=== PATIENT | female | born 1970 | race Caucasian/White ===

== ENCOUNTER → 2020-10-09 13:40 | Outpatient (CLI) | payer SELFPAY ==
[2017-05-03 10:05] VITALS: BMI 38.2
[2020-10-09 16:04] LABS: T4 Total, Thyroxin 8.9 ug/dL (4.8-13.9); Thyroid Stim Hormone (TSH) 2.04 uIU/mL (0.358-3.74)
[2020-10-09 16:23] LABS: Hemoglobin A1c 5.4 % (3.8-5.6)
[2020-10-11 08:33] LABS: Thyroid Peroxidase AB < 9 IU/mL (0-34)
== END ==
PROVIDERS: PCP Nurse Practitioner Adult Health; Referring Provider Nurse Practitioner Adult Health; Visit Provider Nurse Practitioner Adult Health
DX: R63.5 Abnormal weight gain (principal); R53.83 Other fatigue
CPT/HCPCS: 36415; 83036; 84436; 84443; 86376

== ENCOUNTER 2020-10-16 08:47 | Emergency (ER) | payer SELFPAY ==
[2020-10-16 08:47] VITALS: BP 139/82; PULSE 72; RESP 18; TEMP 36.3; O2SAT 100; BMI 42.9
--- NOTE | 2020-10-16 09:16 | RAD_ITS ---
STUDY: X-RAY - LEFT FOOT CLINICAL: Female, 49 years old. Injury/Pain TECHNIQUE: 3 view(s) of the foot. COMPARISON: None. FINDINGS: There is a plantar calcaneal spur. Normal visualized subtalar, talonavicular, calcaneocuboid, tarsal and tarsometatarsal articulations. There is a 4.1 mm avulsion type fracture along the dorsal aspect of the first cuneiform bone. Normal metatarsi. The patient is status post prior bunionectomy. Normal tibial and fibular sesamoid bones. Normal interphalangeal joint of the great toe. Normal phalanges of the great toe. Normal second through fifth metatarsophalangeal joints. Normal interphalangeal joints and phalanges of the lesser toes. Soft tissue swelling. RAD/Foot min 3 Views IMPRESSION: Findings suggestive of an avulsion type fracture along the dorsal aspect of the first cuneiform bone. Soft tissue swelling. Plantar spur. Electronically Signed: Alex Suresh MD at 10:07 EDT , Service support ,
--- NOTE | 2020-10-16 09:17 | ED.VIS.LOWEX ---
HPI History of Present Illness Chief Complaint: Lower Extremity Injury Informant: patient Narrative Narrative: Patient is a 49-year-old female presenting with continued left foot and second/third toe pain. She had an x-ray at [facility] right after the injury which not show an acute fracture. She continued to have pain and has paresthesia of her second toe. She is worried that there might be a missed fracture so she came in for further evaluation. She takes ibuprofen with limited relief of the pain. She denies any medical history. She states she had an A1c performed at [facility] last week. She does not know the results. These results are looked up and her A1c was 5.4, normal. Tetanus Immunization: Unknown PFSH PFS Home Medications estradiol [Estrace] 0 mg PO DAILY 05/03/17 [History Last Taken Unknown] naproxen 500 mg PO BID PRN #20 tab 05/03/17 [Rx Last Taken Unknown] Allergy/AdvReac Type Severity Reaction Status Date / Time No Known Allergies Allergy Verified 10/16/20 08:47 Social History Smoking Status: Former smoker ROS ROS ED Constitutional Constitutional ED: Reports frequent falls; Denies fever(s) Eyes Eyes: Denies change in vision or eye pain ENT ENT ED: Denies dental pain, mouth lesions or nasal trauma Cardiovascular Cardiovascular: Denies chest pain or syncope Respiratory/Chest Respiratory/Chest: Denies cough or dyspnea Gastrointestinal Gastrointestinal: Denies abdominal pain or nausea Genitourinary Genitourinary ED: Denies urinary frequency Musculoskeletal Musculoskeletal: Reports other Details: left foot pain ; Denies arthralgias, back pain or myalgias Integumentary Denies Abrasions, rash or wounds Neurologic Neurologic: Reports paresthesias LLE (left 2nd and 3rd toes ); Denies headache(s) or weakness Psychiatric Psychiatric: Denies anxiety or depression Hematologic/Lymphatic Hematologic/Lymphatic: Denies easy bleeding or easy bruising EXAM Physical Exam Const Vital Signs: 10/16/20 08:47 Temperature 97.3 F L Temperature Source Temporal Pulse Rate 72 Respiratory Rate 18 Blood Pressure 139/82 H Blood Pressure Mean 101 Pulse Ox 100 Oxygen Delivery Method Room Air Positive well nourished and well developed General Appearance ED: well developed HEENT normocephalic and atraumatic Eyes PERRL Neck full ROM Chest Wall inspection of chest normal Resp normal respiratory effort Cardio regular rate and regular rhythm Cardio Narrative: 2+ dp pulses Extremity normal to inspection and full ROM Extremity Narrative: Significant tenderness to palpation of the dorsal aspect of the midfoot with even light palpation as well as tenderness palpation of the second and third left toes. Range of motion is intact. No obvious deformity. No overlying erythema or cellulitic changes. General Extremety ED: Negative for edema General Extremity: Negative for edema Psych mental status grossly normal Skin Lesions: no lesions Rashes: no rashes MDM MDM MDM Narrative Medical decision making narrative: Patient valuated with 1 month of left foot pain. She had injury 1 month ago. She is concerned she has a fracture since it still hurting. She continues to walk on it. She has significant pain of the dorsal aspect of her left midfoot as well as her second and third toes. No new injuries. X-ray shows a 4 mm avulsion fracture of the cuneiform bone. This is consistent with her pain. I am not exactly sure why she is so much pain in her second and third toes however. Case is discussed with podiatry on-call, Dr. Sal, who recommends postop shoe and outpatient follow-up. Patient is given referral for podiatry. She [facility]. Patient had a normal A1c last week and I do not think she has an undiagnosed diabetic neuropathy. Radiography Diagnostic Testing: Radiology Impression Foot X-Ray 10/16/20 09:16 IMPRESSION: Findings suggestive of an avulsion type fracture along the dorsal aspect of the first cuneiform bone. Soft tissue swelling. Plantar spur. Electronically Signed: Alex Suresh MD at 10:07 EDT , Service support , Treatment and Re-Evaluation Comments:: Postop shoe, follow-up with podiatry Discharge Plan Triage Chief Complaint: Lower Extremity Injury ED Provider: Sheryl Bedoya Dx/Rx/DC Orders Clinical Impression: Closed fracture of cuneiform bone of left foot Instructions: ED Fracture, Foot Prescriptions: No Action estradiol [Estrace] 1 MG tablet 0 mg PO DAILY RF: 0 naproxen 500 MG tablet 500 mg PO BID PRN Qty: 20 RF: 0 Primary Care Provider: [facility]en Manning Referrals: Sunni Sal DPM [STAFF PHYSICIAN] - [facility]en [facility] [Primary Care Provider] - Disposition Disposition: Home, self care
[2020-10-16 11:47] VITALS: RESP 16
== END 2020-10-16 11:48 | disposition home or self-care (01) ==
PROVIDERS: Emergency Provider Emergency Medicine
DX: S92.812A Other fracture of left foot, initial encounter for closed fracture (principal); X58.XXXA Exposure to other specified factors, initial encounter; Z87.891 Personal history of nicotine dependence
CPT/HCPCS: 73630; 99283

== ENCOUNTER 2021-07-13 12:05 | Emergency (ER) | payer MEDICAID, SELFPAY ==
[2021-07-13 12:06] VITALS: BP 122/74; PULSE 71; RESP 18; TEMP 35.9; O2SAT 100; BMI 44.6
--- NOTE | 2021-07-13 12:39 | RAD_ITS ---
STUDY: X-RAY - RIGHT ANKLE REASON FOR EXAM: Female, 50 years old. Pain and swelling TECHNIQUE: 3 view(s) of the ankle. COMPARISON: None. FINDINGS: Normal visualized distal tibia and fibula. Normal medial and lateral malleoli. Normal tibiotalar articulation and ankle mortise. Normal visualized talus. Calcaneal spurs The visualized subtalar, talonavicular, calcaneocuboid and tarsal articulations are normal. The soft tissue structures are unremarkable. RAD/Ankle min 3 Views IMPRESSION: Calcaneal spurs, no demonstrated fracture or suspicious osseous lesion Electronically Signed: Felix Salinas MD at 13:19 EST ,
--- NOTE | 2021-07-13 12:39 | RAD_ITS ---
STUDY: X-RAY - RIGHT FOOT CLINICAL: Female, 50 years old. Pain and swelling TECHNIQUE: 3 view(s) of the foot. COMPARISON: None. FINDINGS: Normal talus and tarsal bones. Calcaneal spurs Normal visualized subtalar, talonavicular, calcaneocuboid, tarsal and tarsometatarsal articulations. Normal metatarsi. There is degenerative arthrosis of the metatarsophalangeal joint of the hallux . Normal tibial and fibular sesamoid bones. Normal interphalangeal joint of the great toe. Normal phalanges of the great toe. Normal second through fifth metatarsophalangeal joints. Normal interphalangeal joints and phalanges of the lesser toes. The soft tissue structures are unremarkable. RAD/Foot min 3 Views IMPRESSION: Calcaneal spurs, no demonstrated fracture First MTP joint arthrosis Electronically Signed: Felix Salinas MD at 13:20 EST ,
--- NOTE | 2021-07-13 12:41 | EX.ED.DYSGE1 ---
HPI History of Present Illness Chief Complaint: Lower Extremity Injury Informant: patient Narrative Narrative: 50-year-old female presents with right foot and ankle pain. Few days ago her dog tripped her and she injured the right ankle and the toes of the right foot. She notes swelling ecchymosis and continued pain. PFSH PFSH Medical History no medical history Home Medications estradiol [Estrace] 0 mg PO DAILY 05/03/17 [History Last Taken Unknown] naproxen 500 mg PO BID PRN #20 tab 05/03/17 [Rx Last Taken Unknown] Allergy/AdvReac Type Severity Reaction Status Date / Time No Known Allergies Allergy Verified 07/13/21 12:08 Social History (Updated 07/13/21 @ 12:[address] Erik Salgado, DO) Smoking Status: Former smoker substance use type: does not use ROS ROS ED Constitutional Constitutional ED: Denies chills, fever(s) or weight loss Eyes Eyes: Denies change in vision or diplopia ENT ENT ED: Denies ear pain, rhinorrhea or sore throat Cardiovascular Cardiovascular: Denies chest pain, orthopnea, palpitations or racing heartbeat Respiratory/Chest Respiratory/Chest: Denies cough, dyspnea or orthopnea Gastrointestinal Gastrointestinal: Denies abdominal pain, diarrhea, nausea or vomiting Genitourinary Genitourinary ED: Denies dysuria, hematuria or urinary frequency Musculoskeletal Musculoskeletal: Reports other Details: See history of present illness ; Denies arthralgias or myalgias Integumentary Denies abscess or rash Neurologic Neurologic: Denies headache(s) or weakness Psychiatric Psychiatric: Denies anxiety, depression, suicidal ideation or suicidal thoughts Endocrine Endocrinology: Denies polydipsia, polyphagia or polyuria Allergic/Immunologic Allergic/Immunologic ED: Denies mouth swelling, tongue swelling or urticaria EXAM Physical Exam Const Vital Signs: 07/13/21 12:06 Temperature 96.6 F L Temperature Source Temporal Pulse Rate 71 Respiratory Rate 18 Blood Pressure 122/74 H Blood Pressure Mean 90 Pulse Ox 100 Oxygen Delivery Method Room Air Positive well nourished, well developed and obese General Appearance ED: well developed Nutritional Appearance: obese HEENT Reports normocephalic, head/scalp atraumatic, TM's clear and moist mucous membranes Negative for trauma Tympanic Membrane ED: Yes TM's clear Eyes PERRL and EOMs intact bilaterally Neck no lymphadenopathy, supple and no JVD Resp normal respiratory effort and clear to auscultation bilaterally Cardio regular rate, regular rhythm and no murmurs GI normal to inspection, nondistended, normoactive bowel sounds and non-tender Palpation: soft Back/Spine no CVA tenderness and normal ROM Extremity Extremity Narrative: Swelling tenderness and ecchymosis noted on the right third fourth and fifth toe. Neurovascular intact. There are some minor swelling and ecchymosis of the lateral malleolus. General Extremety ED: Negative for edema General Extremity: Negative for edema Neuro oriented x3 and CN's II-XII intact bilaterally Sensorium / Orientation: alert Motor Exam: strength 5/5 throughout Psych mental status grossly normal Mood & Affect: Negative for depressed or tearful Skin no rashes or lesions noted and no wounds MDM MDM MDM Narrative Medical decision making narrative: My interpretation of the plain films of the ankles no acute fracture. My interpretation of the plain films of the foot is no acute fracture. Patient will be given a postop shoe and supportive care return if worsening or concerns Radiography Diagnostic Testing: Clinical Impression(s) from Imaging Studies Ankle X-Ray 07/13/21 12:39 IMPRESSION: Calcaneal spurs, no demonstrated fracture or suspicious osseous lesion Electronically Signed: Felix Salinas MD at 13:19 EST Reading Location ID and State: [facility] / [place] , Service support , Foot X-Ray 07/13/21 12:39 IMPRESSION: Calcaneal spurs, no demonstrated fracture First MTP joint arthrosis Electronically Signed: Felix Salinas MD at 13:20 EST , Discharge Plan Triage Chief Complaint: Lower Extremity Injury ED Provider: Erik Salgado Dx/Rx/DC Orders Clinical Impression: Contusion of right foot, Ankle sprain Instructions: ED Foot Contusion Prescriptions: No Action estradiol [Estrace] 1 MG tablet 0 mg PO DAILY RF: 0 naproxen 500 MG tablet 500 mg PO BID PRN Qty: 20 RF: 0 Primary Care Provider: Care Physician,No Primary Referrals: Care Physician,No Primary [Primary Care Provider] - Disposition Disposition: Home, Self Care
== END 2021-07-13 23:59 | disposition home or self-care (01) ==
PROVIDERS: Emergency Provider Emergency Medicine; Visit Provider Emergency Medicine
DX: S90.31XA Contusion of right foot, initial encounter (principal); S93.409A Sprain of unspecified ligament of unspecified ankle, initial encounter; Z87.891 Personal history of nicotine dependence; W01.0XXA Fall on same level from slipping, tripping and stumbling without subsequent striking against object, initial encounter
CPT/HCPCS: 73610; 73630; 99283

== ENCOUNTER 2021-12-06 10:47 | Emergency (ER) | payer MEDICAID, SELFPAY ==
[2021-12-06 10:49] VITALS: BP 140/70; PULSE 76; RESP 17; TEMP 37; O2SAT 100; BMI 43.4
--- NOTE | 2021-12-06 12:38 | EX.ED.GENINJ ---
HPI History of Present Illness Chief Complaint: Head Injury Informant: patient Onset/Context/Timing Onset: Yesterday Mechanism/Context: Blunt Injury Quality of Pain: Sharp Location: Right frontal and left parietal Worsened by: Nothing Relieved by: Nothing Associated Symptoms Associated Symptoms: Negative for Parasthesias, Weakness, Loss of function, Inability to ambulate, Loss of consciousness or Amnesia Narrative Narrative: Patient presents with a head injury that occurred yesterday. Patient states that she was hit in the head by a wooden paper towel chaudhry. Patient states her daughter was trying to get it down in their camper when it fell and hit her in the right frontal area and left parietal area. Patient denies any loss of consciousness. Patient states the pain is aching. Patient states the pain became worse today. Patient states nothing makes it better nothing makes it worse. Patient denies any visual changes. Patient admits to some mild nausea but denies any vomiting. Patient denies any paresthesias or weakness. PFSH PFSH Medical History no medical history no medical history Home Medications estradiol 1 mg tablet (Estrace) 0 mg PO DAILY 05/03/17 [History Last Taken Unknown] naproxen 500 mg tablet 500 mg PO BID PRN ##20 05/03/17 [Rx Last Taken Unknown] Allergy/AdvReac Type Severity Reaction Status Date / Time No Known Allergies Allergy Verified 12/06/21 10:48 Surgical History (Updated 12/06/21 @ 12:[address] Sigifredo Ball DO) History of hysterectomy Hx of cholecystectomy Surgical History no surgical history Social History Smoking Status: Former smoker substance use type: does not use EXAM Physical Exam Const Vital Signs: 12/06/21 10:49 12/06/21 10:54 Temperature 98.6 F Temperature Source Temporal Pulse Rate 76 Respiratory Rate 17 Respiratory Effort Normal Respiratory Depth Normal Respiratory Pattern Normal Blood Pressure 140/70 H Blood Pressure Mean 93 Pulse Ox 100 Oxygen Delivery Method Room Air Room Air Positive well nourished and well developed General Appearance ED: well developed and NAD HEENT HEENT Narrative: There is some edema and ecchymosis over the right frontal area. There is no bony crepitance or step-off. There is a small superficial abrasion over the area. trauma and tenderness Eyes PERRL and EOMs intact bilaterally Neck full ROM Extremity normal to inspection and full ROM Neuro oriented x3, CN's II-XII intact bilaterally, moves all extremities, no focal motor deficits and no sensory deficits noted Dolores Coma Scale: document GCS findings Spontaneous Obeys Commands Oriented 15 Sensorium / Orientation: alert Motor Exam: strength 5/5 throughout Psych mental status grossly normal and thought process normal MDM MDM MDM Narrative Medical decision making narrative: Patient was given head injury instructions. I do not feel that CT scan is necessary at this time. Patient is agreeable with this. Patient was instructed to drink plenty of fluids. Patient was instructed to take Tylenol or ibuprofen as needed for headaches. Patient was instructed return if worse in any way. Patient understood and was agreeable with the plan. All questions were answered. Discharge Plan Triage Chief Complaint: Head Injury ED Provider: Sigifredo Ball Dx/Rx/DC Orders Clinical Impression: Closed head injury Instructions: ED Scalp Contusion, ED Head Injury (Adult) Prescriptions: No Action estradiol [Estrace] 1 MG tablet 0 mg PO DAILY Label Comments: DOSE UNKNOWN naproxen 500 MG tablet 500 mg PO BID PRN Qty: 20 0RF Primary Care Provider: Shayne Nogueira Referrals: Shayne Nogueira MD [Primary Care Provider] - 3-5 Days Disposition Disposition: Home, Self Care
[2021-12-06 12:49] VITALS: BP 134/78; PULSE 66; RESP 14; TEMP 36.6; O2SAT 98
== END 2021-12-06 12:50 | disposition home or self-care (01) ==
PROVIDERS: Emergency Provider Emergency Medicine; PCP Student in an Organized Health Care Education/Training Program; Visit Provider Emergency Medicine
DX: S09.90XA Unspecified injury of head, initial encounter (principal); R11.0 Nausea; Z87.891 Personal history of nicotine dependence; W22.8XXA Striking against or struck by other objects, initial encounter
CPT/HCPCS: 99282

== ENCOUNTER 2023-09-25 10:54 | Emergency (ER) | payer SELFPAY ==
[2023-09-25 10:55] VITALS: BP 149/71; PULSE 70; RESP 18; TEMP 36.4; O2SAT 97; BMI 43.2
--- NOTE | 2023-09-25 11:05 | EDS_ITS ---
HPI History of Present Illness Chief Complaint: Lower Extremity Injury Detail of Chief Complaint: Left hip pain after fall Informant: patient Narrative Narrative: Patient presents the emergency department with complaint of injury to the left hip. Patient states she fell 3 nights ago coming down the steps and she hit the edge of the step with her left buttock and hip. Patient having hard time moving a time secondary to pain. She is able to ambulate. She denies any other injuries. Steps were carpeted. PFSH PFSH Home Medications albuterol sulfate 90 mcg/actuation aerosol inhaler 2 puff inhalation Q4-6H PRN asthma #8.5 grams 08/28/23 [Rx Last Taken Unknown] montelukast 10 mg tablet 10 mg PO DAILY #30 tabs 08/28/23 [Rx Last Taken Unknown] hydrocodone-acetaminophen 5-325mg 5mg-325mg 1 tab PO Q4H PRN PRN Pain 2 days #10 TABLETS 09/25/23 [Rx Last Taken Unknown] Allergy/AdvReac Type Severity Reaction Status Date / Time No Known Allergies Allergy Verified 09/25/23 10:55 Surgical History History of hysterectomy Hx of cholecystectomy Social History Smoking Status: Former smoker substance use type: does not use ROS ROS ED Review of Systems ROS Unobtainable: other Constitutional Constitutional ED: Reports lethargy; Denies chills, fever(s), sweats or weight loss Eyes Eyes: Denies blurry vision, change in vision or diplopia ENT ENT ED: Denies rhinorrhea or sore throat Cardiovascular Cardiovascular: Denies chest pain, orthopnea or racing heartbeat Respiratory/Chest Respiratory/Chest: Denies cough, dyspnea, dyspnea on exertion, orthopnea or sputum Gastrointestinal Gastrointestinal: Denies abdominal pain, diarrhea, nausea or vomiting Genitourinary Genitourinary ED: Denies dysuria, hematuria or urinary frequency Musculoskeletal Musculoskeletal: Reports other Details: Left hip pain ; Denies arthralgias, back pain, myalgias or neck pain Integumentary Denies abscess, Abrasions or rash Neurologic Neurologic: Denies headache(s) or weakness Psychiatric Psychiatric: Denies anxiety, depression or suicidal thoughts Endocrine Endocrinology: Denies polydipsia, polyphagia or polyuria Hematologic/Lymphatic Hematologic/Lymphatic: Denies easy bleeding, easy bruising or lymphadenopathy Allergic/Immunologic Allergic/Immunologic ED: Denies mouth swelling, tongue swelling or urticaria EXAM Physical Exam Const Vital Signs: 09/25/23 10:55 09/25/23 11:59 Temperature 97.5 F L 97.2 F L Temperature Source Temporal Pulse Rate 70 68 Respiratory Rate 18 16 Blood Pressure 149/71 H 134/68 H Blood Pressure Mean 97 90 Pulse Ox 97 98 Oxygen Delivery Method Room Air Positive well nourished and well developed General Appearance ED: well developed and NAD HEENT Reports TM's clear and moist mucous membranes normocephalic and atraumatic; Negative for trauma or tenderness Tympanic Membrane ED: Yes TM's clear Eyes PERRL and EOMs intact bilaterally General Eye ED: Negative for pale conjunctiva or scleral icterus Neck no lymphadenopathy, supple and no JVD General: Negative for tenderness Chest Wall inspection of chest normal and palpation of chest normal Chest: Negative for tenderness Resp normal respiratory effort and clear to auscultation bilaterally Effort and Inspection: Negative for respiratory distress or pain with movement Auscultation: Negative for rhonchi, wheezes or diminished lung sounds Cardio regular rate, regular rhythm, S1 normal heart sound, S2 normal heart sound and no murmurs Peripheral Pulses: pulses 2+ throughout GI normal to inspection, nondistended, normoactive bowel sounds, soft to palpation, non-tender, non-distended and no masses Back/Spine no CVA tenderness and no thoracic nor lumbar tenderness Extremity Extremity Narrative: Left lower extremity-patient has tenderness palpation mid left buttock. There is no ecchymosis or bruising. No masses palpated. Tenderness also over the left hip. There is no shortening or external rotation. Again no ecchymosis or bruising noted over the hip joint. Neurovascular intact distally. She does have pain with range of motion in the hip. General Extremety ED: Negative for edema General Extremity: Negative for edema Neuro oriented x3, CN's II-XII intact bilaterally, no sensory deficits noted and gait normal Sensorium / Orientation: awake, alert, oriented to person, oriented to place and oriented to time Motor Exam: strength 5/5 throughout and strength abnormal Psych mental status grossly normal Skin no rashes or lesions noted and no wounds MDM MDM MDM Narrative Medical decision making narrative: Patient presents to the emergency department after a fall and injury to her left hip and buttock. I did obtain x-rays of the left hip and pelvis interpreted by myself as no evidence of fracture or other abnormality. This point should be discharged to home. She did not want crutches. Patient will be given a prescription for few [place] for pain. She is advised to follow-up with her primary care physician within next 7 to 10 days. Lab Data Attestation: I reviewed the patient's lab results. Radiography Diagnostic Testing: Clinical Impression(s) from Imaging Studies Hip/Pelvis X-Ray 09/25/23 11:28 IMPRESSION: Normal x-ray examination of the pelvis and hip. Electronically Signed: Alex Suresh MD at 12:17 EDT , Three-view x-rays of the left hip and pelvis obtained interpreted by myself as no evidence of fracture or dislocation. Official report from radiology pending. Discharge Plan Triage Chief Complaint: Lower Extremity Injury ED Provider: Marichuy Rouse Dx/Rx/DC Orders Clinical Impression: Contusion of hip, left Instructions: ED Hip Contusion Prescriptions: New hydrocodone-acetaminophen [hydrocodone-acetaminophen] 5-325 mg tablet 1 tab PO Q4H PRN PRN (Reason: Pain) 2 Days Qty: 10 0RF No Action montelukast 10 mg tablet 10 mg PO DAILY Qty: 30 12RF albuterol sulfate 90 mcg/actuation HFA aerosol inhaler 2 puff inhalation Q4-6H PRN (Reason: asthma) Qty: 8.5 12RF Primary Care Provider: Care Physician,No Primary Referrals: Shayne Nogueira MD [Non-Staff] - 5-7 Days Disposition Disposition: Home, Self Care Discharge Date/Time: 09/25/23 12:00
--- NOTE | 2023-09-25 11:28 | RAD_ITS ---
STUDY: X-RAY - PELVIS AND LEFT HIP REASON FOR EXAM: Female, 52 years old. Left hip pain following a fall. TECHNIQUE: 3 views of the pelvis and hip. COMPARISON: None. FINDINGS: There is a non-specific bowel gas pattern. Normal visualized soft tissue structures. Normal bilateral iliac wings, sacroiliac joints and visualized sacrum. Normal bilateral superior and inferior pubic rami. Normal pubic symphysis. Normal bilateral ischial tuberosities. Normal visualized femoral head. Normal acetabulum. Normal hip joint. RAD/HIP, UNI W/ Pelvis 2-3 Views IMPRESSION: Normal x-ray examination of the pelvis and hip. Electronically Signed: Alex Suresh MD at 12:17 EDT ,
[2023-09-25 11:59] VITALS: BP 134/68; PULSE 68; RESP 16; TEMP 36.2; O2SAT 98
== END 2023-09-25 12:00 | disposition home or self-care (01) ==
PROVIDERS: Emergency Provider Emergency Medicine; Visit Provider Emergency Medicine
DX: S70.02XA Contusion of left hip, initial encounter (principal); Z87.891 Personal history of nicotine dependence; W10.9XXA Fall (on) (from) unspecified stairs and steps, initial encounter; Z90.710 Acquired absence of both cervix and uterus; Z90.49 Acquired absence of other specified parts of digestive tract
CPT/HCPCS: 73502; 99282